=== PATIENT | female | born 1955 | race Caucasian/White ===

== ENCOUNTER 2021-04-12 18:03 | Emergency (ER) | payer MEDICARE ==
[~2021-04-12] VITALS: Ht 167.6 cm; Wt 95.8 kg
--- NOTE | 2021-04-12 19:11 | PHYS DOC ---
General Adult EDM: Chief Complaint: COUGH HPI: HPI: " I ve been sick about a week.. they check my covid tues and it was negative.. I never come to ED.. but I am miserable..." ". I got fever .. chills... coughing all the time... " Patient is a 66 year old female who presents with above hx and complaints of cough, fever, chills, malaise, arthralgia, cephalgia, and myalgia. Pt. has significant medical hx of previous colon cancer with colon resection. And 2017. Patient underwent surgery radiation and chemotherapy at [facility]. Patient states she has completed Covid vaccination. X2. No recent travel. No specific ill contacts. Patient does not smoke. Pt. Patient follows with Verna. Review of Systems: Review of Systems: Constitutional: History of fever or chills Eyes: Denies change in visual acuity HENT: Denies nasal congestion or sore throat Respiratory: History of a nonproductive cough Cardiovascular: Denies chest pain or edema GI: Denies abdominal pain, nausea, vomiting, bloody stools or diarrhea : Denies dysuria Musculoskeletal: Complains of myalgia arthralgia Integument: Denies rash Neurologic: Complains of headache from the constant coughing. Endocrine: Denies polyuria or polydipsia Lymphatic: Denies swollen glands Psychiatric: Denies depression or anxiety Family History: Family History: Noncontributory to presentation. Current Medications: Current Meds: See nursing for home meds Allergies: Allergies: No known drug allergies Physical Exam: PE: Constitutional: Moderate acute distress, non-toxic appearance. [] HENT: Normocephalic, atraumatic, bilateral external ears normal, oropharynx moist, no oral exudates, nose normal. [] Eyes: PERRLA, EOMI, conjunctiva normal, no discharge. [] Neck: Normal range of motion, no tenderness, supple, no stridor. [] Cardiovascular:Heart rate regular rhythm, no murmur [] Lungs & Thorax: Bilateral breath sounds equal apex with rhonchi over right lung barroso posteriorly on auscultation []. The patient has somewhat persistent nonproductive cough Abdomen: Bowel sounds normal, soft, no tenderness, no masses, no pulsatile masses. Old surgery scars. Skin: Warm, diaphoretic, no erythema, no rash. [] Back: No tenderness, no CVA tenderness. [] Extremities: No tenderness, no cyanosis, no clubbing, ROM intact, no edema. No cording appreciated Neurologic: Alert and oriented X 3, moves all extremities on request, has distal sensory,, no focal deficits noted. Ambulatory without problems. Psychologic: Affect anxious, judgement normal, mood normal. [] Current Patient Data: Vital Signs: Vital Signs Date Time Temp Pulse Resp B/P (MAP) Pulse Ox O2 Delivery O2 Flow Rate FiO2 04/12/21 18:03 83 98 Room Air EKG: EKG: My interpretation EKG shows a sinus rhythm at 74 bpm. There is an incomplete bundle branch block. But no findings of acute STEMI of contralateral changes time of this EKG is 1940 hrs. [] Radiology/Procedures: Radiology/Procedures: [address] [address] IMAGING REPORT Signed PATIENT: JIM MCAK ACCOUNT: [id number] : 1955 LOCATION: ER AGE: 66 SEX: F EXAM STATUS: DEP ER ORD. PHYSICIAN: KENA MACK MD REASON: cough, dyspnea, mass, OMNI 350, 100ml PROCEDURE: CT ANGIOGRAPHY CHEST EXAM: CT chest with contrast - pulmonary embolus protocol CLINICAL HISTORY: Reason: cough, dyspnea, mass, OMNI 350, 100ml / Spl. Instructions: / History: . COMPARISON: None. TECHNIQUE: CT of the chest following the administration of intravenous contrast during the pulmonary arterial phase. Axial, coronal and sagittal reformatted images were generated including MIP images. ---PQRS compliance statement - One or more of the following individualized dose reduction techniques were utilized for this study: 1. Automated exposure control 2. Adjustment of the mA and/or kV according to patient size 3. Use of iterative reconstruction technique--- FINDINGS: CHEST: Diagnostic quality: Adequate. Pulmonary emboli: No pulmonary emboli to the level of the segmental branches. More peripheral vessels are not well assessed. Right heart strain: There is global dilation of the heart without evidence of right heart strain. There is a trace pericardial effusion. Pulmonary arteries: Normal in caliber. The visualized thyroid gland is normal. There is fluid throughout the course of the esophagus with small hiatal hernia demonstrated. There is a soft tissue attenuating masslike consolidation within the portion of the right lower lobe measures 5.2 x 6.9 x 5.3 cm in maximal AP by transverse by craniocaudal dimensions. This masslike consolidation abuts the pleura without extrapleural extension. This area of consolidation extends along the major fissure without extension into the right upper lobe. There is increased interstitial markings with scattered glass opacities the central airway. Conglomerate of right hilar adenopathy causes significant decompression of the right main/interlobar bronchus without occlusion. There are also a few prominent subcarinal lymph nodes. Visualized Upper abdomen: No evidence of acute process. There appears to be suture material along the greater gastric curvature. Unopacified ptosis. Bones: Multiple level degenerative changes of the thoracic spine with no evidence of acute process. IMPRESSION: 1. No evidence of pulmonary thromboembolic disease to the level of the segmental pulmonary arteries. 2. Large masslike consolidation within the right lower lobe abutting the right major fissure. This may be a focus of infection versus pulmonary neoplasm. Short interval follow-up with possible biopsy is advised. 3. Conglomerate of right hilar nodes may be reactive versus lymphatic metastasis. Electronically signed by: Elissa Kimbrough DO (04/13/2021 5:58 AM) [facility] DICTATED AND SIGNED BY: ELISSA KIMBROUGH DO DATE: 04/13/21 0539 CC: KENA MACK MD; NICO WARD ~MTH0 [address] [place] [address] IMAGING REPORT Signed PATIENT: JIM MACK ACCOUNT: [id number] : 1955 LOCATION: ER AGE: 66 SEX: F EXAM STATUS: REG ER ORD. PHYSICIAN: KENA MACK MD REASON: HEAD ACHE, WITH LUNG MASS PROCEDURE: CT HEAD WO CONTRAST EXAMINATION: CT head without IV contrast INDICATION:66 years, Female, headache, with lung mass. COMPARISON: None TECHNIQUE: Spiral acquisition of contiguous images from the skull base to the vertex were obtained. Sagittal and coronal 2D reformatted series were provided by the technologist. Soft tissue and bone window algorithms were reviewed. Exposure: One or more of the following individualized dose reduction techniques were utilized for this examination: 1. Automated exposure control 2. Adjustment of the mA and/or kV according to patient size 3. Use of iterative reconstruction technique. FINDINGS: Neither mass, midline shift, intracranial hemorrhage, acute/subacute ischemic changes, nor extraaxial fluid collections are seen. Mild brain parenchymal volume loss. Supratentorial periventricular white matter hypodensities, indeterminate but most likely representing chronic microangiopathic disease. Small left mucosal retention cyst in the left maxillary sinus. Remaining paranasal sinuses and mastoid air cells are clear., mastoid air cells, and middle ears are clear.The orbital contents appear within normal limits. IMPRESSION: 1. No evidence of acute intracranial abnormality. If symptoms persist then further evaluation with nonemergent MRI without and with IV contrast may be considered. 2. Supratentorial periventricular white matter hypodensities, indeterminate but most likely representing chronic microangiopathic disease. Electronically signed by: Elissa Kimbrough DO (04/13/2021 12:03 AM) [facility] DICTATED AND SIGNED BY: ELISSA KIMBROUGH DO DATE: 04/13/21 0000 CC: KENA MACK MD; NICO WARD ~MTH0 0 [][place] [address] IMAGING REPORT Signed PATIENT: JIM MACK ACCOUNT: [id number] : 1955 LOCATION: ER AGE: 66 SEX: F EXAM STATUS: REG ER ORD. PHYSICIAN: KENA MACK MD REASON: cp, dyspnea PROCEDURE: CHEST PA & LATERAL Exam: Chest 2 views INDICATION: Dyspnea TECHNIQUE: Frontal and lateral views of the chest Comparisons: None FINDINGS: The cardiomediastinal silhouette and pulmonary vessels are within normal limits. There is a right lower lobe mass which measures approximately 6.7 cm. No pleural effusion IMPRESSION: Right lower lobe mass measuring approximately 6.7 cm. Electronically signed by: Bret Cedillo MD (04/12/2021 8:58 PM) [facility] DICTATED AND SIGNED BY: BRET CEDILLO MD DATE: 04/12/212056 CC: KENA MACK MD; NICO WARD ~MTH0 0 Heart Score: C/O Chest Pain: N/A HEART Score for Chest Pain: HEART Score for Chest Pain Response (Comments) Value History Slighlty/Non-Suspicious 0 ECG Normal 0 Age > 65 2 Risk Factors 1 or 2 Risk Factors 1 Troponin < Normal Limit 0 Total 3 Risk Factors: Risk Factors: DM, Current or recent (<one month) smoker, HTN, HLP, family history of CAD, obesity. Risk Scores: Score 0 - 3: 2.5% MACE over next 6 weeks - Discharge Home Score 4 - 6: 20.3% MACE over next 6 weeks - Admit for Clinical Observation Score 7 - 10: 72.7% MACE over next 6 weeks - Early Invasive Strategies Course & Med Decision Making: Course & Med Decision Making Pertinent Labs and Imaging studies reviewed. (See chart for details) Discussed presentation, testing and treatment plan with . Will accept pt. in transfer to [facility] for further eval. Impression: 1. Cough 2. Lung Mass Rt. 3. Post structural pneumonia 4. Leukocytosis 13.8 5. Elevated D-dimer 0.98 6. Diabetes glucose 152 7. Has completed Covid vaccination x2 8. History of colon cancer status post resection chemo and radiation 2016 [] Dragon Disclaimer: Dragon Disclaimer: This electronic medical record was generated, in whole or in part, using a voice recognition dictation system. Departure Departure: Referrals: NICO WARD (PCP) Dragon Disclaimer This chart was dictated in whole or in part using Voice Recognition software in a busy, high-work load, and often noisy Emergency Department environment. It may contain unintended and wholly unrecognized errors or omissions. Dragon Disclaimer This chart was dictated in whole or in part using Voice Recognition software in a busy, high-work load, and often noisy Emergency Department environment. It may contain unintended and wholly unrecognized errors or omissions. Dragon Disclaimer This chart was dictated in whole or in part using Voice Recognition software in a busy, high-work load, and often noisy Emergency Department environment. It may contain unintended and wholly unrecognized errors or omissions. KENA MACK MD Apr 12, 2021 19:10
[2021-04-12] MEDS: ALBUTEROL SULFATE 8GM INHALER. INH ONE ×2 (19:30→19:43)
[2021-04-12] MEDS: IV RINGERS SOLUTION,LACTATED 1,000 ML IV SCH (19:30)
[2021-04-12] MEDS: methylPREDNISolone SOD SUCC PF 125 MG/2 ML VIAL. IV ONE (19:30)
[2021-04-12] MEDS: AZITHROMYCIN 250 MG TABLET. PO ONE (19:30)
[2021-04-12 20:22] LABS: INFLUENZA A PATIENT NEGATIVE (NEGATIVE); INFLUENZA B PATIENT NEGATIVE (NEGATIVE)
[2021-04-12 20:39] LABS: BASO % 0 % (0-3); EOS % 0 % (0-3); HEMATOCRIT 38.2 % (36.0-47.0); HEMOGLOBIN 12.7 g/dL (12.0-15.5); LYMPH # 1.1 x10^3/uL (1.0-4.8); LYMPH % 8 % (24-48); MEAN CORPUSCULAR HEMOGLOBIN 31 pg (25-35); MEAN CORPUSCULAR HGB CONC 33 g/dL (31-37); MEAN CORPUSCULAR VOLUME 93 fL (79-100); MONO # 0.9 x10^3/uL (0.0-1.1); MONO % 7 % (0-9); NEUT # 11.7 x10^3uL (1.8-7.7); NEUT % 85 % (31-73); PLATELET COUNT 341 x10^3/uL (140-400); RED BLOOD COUNT 4.12 x10^6/uL (3.50-5.40); RED CELL DISTRIBUTION WIDTH 13.2 % (11.5-14.5); WHITE BLOOD COUNT 13.8 x10^3/uL (4.0-11.0)
[2021-04-12 20:55] LABS: CALCIUM 8.9 mg/dL (8.5-10.1); CREATININE 0.8 mg/dL (0.6-1.0); GFR 71.3; POTASSIUM 3.6 mmol/L (3.5-5.1)
--- NOTE | 2021-04-12 21:00 | RAD ---
Exam: Chest 2 views INDICATION: Dyspnea TECHNIQUE: Frontal and lateral views of the chest Comparisons: None FINDINGS: The cardiomediastinal silhouette and pulmonary vessels are within normal limits. There is a right lower lobe mass which measures approximately 6.7 cm. No pleural effusion IMPRESSION: Right lower lobe mass measuring approximately 6.7 cm. Electronically signed by: Bret Alvarado MD (04/12/2021 8:58 PM) [facility]
[2021-04-12 21:07] LABS: ALBUMIN 2.9 g/dL (3.4-5.0); DIRECT BILIRUBIN 0.1 mg/dL (0.0-0.2); MAGNESIUM 1.9 mg/dL (1.8-2.4); TOTAL BILIRUBIN 0.5 mg/dL (0.2-1.0); TOTAL PROTEIN 7.7 g/dL (6.4-8.2)
[2021-04-12] MEDS ORDERED: oxyCODONE/APAP 5/325 1 TAB TABLET ONE (21:21)
--- NOTE | 2021-04-12 21:51 | EKG ---
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
[2021-04-12] MEDS: oxyCODONE/APAP 5/325 1 TAB TABLET PO ONE (22:00)
[2021-04-12] MEDS ORDERED: ONDANSETRON PF 4 MG/2 ML VIAL. ONE (22:36)
[2021-04-12] MEDS ORDERED: CONTRAST GIVEN. MC PRN (22:45)
[2021-04-12] MEDS: ONDANSETRON PF 4 MG/2 ML VIAL. IVP ONE (23:00)
[2021-04-12] MEDS: IOHEXOL 350 MG/ML 100 ML VIAL. IV ONE (23:20)
[2021-04-12] MEDS ORDERED: ONDANSETRON PF 4 MG/2 ML VIAL. IVP ONE (23:30)
--- NOTE | 2021-04-13 00:05 | RAD ---
EXAMINATION: CT head without IV contrast INDICATION:66 years, Female, headache, with lung mass. COMPARISON: None TECHNIQUE: Spiral acquisition of contiguous images from the skull base to the vertex were obtained. S agittal and coronal 2D reformatted series were provided by the technologist. Soft tissue and bone win abdifatah algorithms were reviewed. Exposure: One or more of the following individualized dose reduction techniques were utilized for thi s examination: 1. Automated exposure control 2. Adjustment of the mA and/or kV according to patient size 3. Use of iterative reconstruction technique. FINDINGS: Neither mass, midline shift, intracranial hemorrhage, acute/subacute ischemic changes, nor extraaxial fluid collections are seen. Mild brain parenchymal volume loss. Supratentorial periventricular white matter hypodensities, indeterminate but most likely representing chronic microangiopathic disease. Small left mucosal retention cyst in the left maxillary sinus. Remaining paranasal sinuses and mastoi d air cells are clear., mastoid air cells, and middle ears are clear.The orbital contents appear with in normal limits. IMPRESSION: 1. No evidence of acute intracranial abnormality. If symptoms persist then further evaluation with n onemergent MRI without and with IV contrast may be considered. 2. Supratentorial periventricular white matter hypodensities, indeterminate but most likely represen ting chronic microangiopathic disease. Electronically signed by: Caleb Kimbrough DO (04/13/2021 12:03 AM) [facility]
[2021-04-13 00:08] LABS: BILIRUBIN,URINE NEG (NEG); CLARITY,URINE CLEAR; COLOR,URINE YELLOW; GLUCOSE,URINE NEG (NEG)
[2021-04-13 00:09] LABS: BACTERIA,URINE 0 /HPF (0-FEW); NITRITE,URINE NEG (NEG); RBC,URINE 0 /HPF (0-2); SQUAMOUS EPITHELIAL CELL,UR OCC /LPF; UROBILINOGEN,URINE 0.2 mg/dL (0.2 mg/dL); WBC,URINE OCC /HPF (0-4)
[2021-04-13] MEDS: ENOXAPARIN ** NOTE DOSE ** SYRINGE SQ ONE (02:30)
[2021-04-13 02:52] VITALS: BP 130/68
[2021-04-13] MEDS ORDERED: LIDOCAINE 1% Multi-Dose 20 ML VIAL. ONE (03:11)
[2021-04-13] MEDS: IPRATRPIUM/ALBUTEROL 0.5/2.5MG 3 ML NEBU. NEB ONE (03:28)
--- NOTE | 2021-04-13 06:00 | RAD ---
EXAM: CT chest with contrast - pulmonary embolus protocol CLINICAL HISTORY: Reason: cough, dyspnea, mass, OMNI 350, 100ml / Spl. Instructions: / History: . COMPARISON: None. TECHNIQUE: CT of the chest following the administration of intravenous contrast during the pulmonary arterial phase. Axial, coronal and sagittal reformatted images were generated including MIP images. ---PQRS compliance statement - One or more of the following individualized dose reduction techniques were utilized for this study: 1. Automated exposure control 2. Adjustment of the mA and/or kV according to patient size 3. Use of iterative reconstruction technique--- FINDINGS: CHEST: Diagnostic quality: Adequate. Pulmonary emboli: No pulmonary emboli to the level of the segmental branches. More peripheral vessel s are not well assessed. Right heart strain: There is global dilation of the heart without evidence of right heart strain. The re is a trace pericardial effusion. Pulmonary arteries: Normal in caliber. The visualized thyroid gland is normal. There is fluid throughout the course of the esophagus with sm all hiatal hernia demonstrated. There is a soft tissue attenuating masslike consolidation within the portion of the right lower lobe measures 5.2 x 6.9 x 5.3 cm in maximal AP by transverse by craniocaud al dimensions. This masslike consolidation abuts the pleura without extrapleural extension. This area of consolidation extends along the major fissure without extension into the right upper lobe. There is increased interstitial markings with scattered glass opacities the central airway. Conglomerate of right hilar adenopathy causes significant decompression of the right main/interlobar bronchus withou t occlusion. There are also a few prominent subcarinal lymph nodes. Visualized Upper abdomen: No evidence of acute process. There appears to be suture material along th e greater gastric curvature. Unopacified ptosis. Bones: Multiple level degenerative changes of the thoracic spine with no evidence of acute process. IMPRESSION: 1. No evidence of pulmonary thromboembolic disease to the level of the segmental pulmonary arteries. 2. Large masslike consolidation within the right lower lobe abutting the right major fissure. This ma y be a focus of infection versus pulmonary neoplasm. Short interval follow-up with possible biopsy is advised. 3. Conglomerate of right hilar nodes may be reactive versus lymphatic metastasis. Electronically signed by: Caleb Kimbrough DO (04/13/2021 5:58 AM) [facility]
--- NOTE | 2021-04-14 11:59 | NUR ---
IP: Attempted to contact pt concerning covid results. No answer, left a voicemail to return the call.
== END 2021-04-13 04:07 | disposition short-term general hospital (02) ==
LOC: ER 18:03
DX: J18.9 Pneumonia, unspecified organism (principal); R91.8 Other nonspecific abnormal finding of lung field; D72.829 Elevated white blood cell count, unspecified; R79.1 Abnormal coagulation profile; E11.9 Type 2 diabetes mellitus without complications; Z20.822 Contact with and (suspected) exposure to COVID-19; Z85.038 Personal history of other malignant neoplasm of large intestine
CPT/HCPCS: 36415; 70450; 71046; 71275; 80048; 80076; 81001; 82550; 83735; 83880; 84443; 84484; 85025; 85379; 85610; 85730; 87040; 87070; 87426; 87804; 87880; 93005; 94640; 96361; 96372; 96374; 96375; 99285; C9803; J1650; J2405; J2930; J7120; Q9967; U0003; 94664

== ENCOUNTER → 2021-05-26 | Outpatient (CLI) | payer MEDICARE ==
[~2021-05-26] MED LIST: IOHEXOL 300 MG/ML 75 ML VIAL. IV ONE
--- NOTE | 2021-05-26 11:57 | RAD ---
CT of the chest with contrast 05/26/2021 INDICATION: Follow-up pneumonia. COMPARISON STUDY: CT angiography of the chest April 12, 2021. TECHNIQUE: Multidetector CT imaging of the chest was performed following the administration of contra st FINDINGS: Heart size is normal. No pericardial effusion is identified. With respect to comparison ting dy right hilar adenopathy is significantly improved. No new or enlarging adenopathy is identified. Th ere is no pneumothorax or pleural effusion. There is markedly interval improvement in the previously seen dense right lower lobe consolidation. Mild residual atelectasis/consolidation persists. The appe arance is consistent with resolving pneumonia. Small hiatal hernia noted. Postoperative changes follo wing sleeve gastrectomy noted. Limited of the upper abdomen demonstrates no acute abnormality. No acu te osseous abnormality is identified. IMPRESSION: 1. Interval improvement in right lower lobe pneumonia with only minimal residual consolidation and at electasis. Decreasing right hilar adenopathy also noted. 2. No other acute cardiopulmonary process CT DOSING PQRS STATEMENT: One or more of the following individualized dose reduction techniques were utilized for this examinat ion: 1. Automated exposure control 2. Adjustment of the mA and/or kV according to patient size 3. Use of iterative reconstruction technique Electronically signed by: Delvin Leiva MD (05/26/2021 11:54 AM) [id number]
== END ==
LOC: CT 13:21
PROVIDERS: ATTEND Internal Medicine
DX: J18.9 Pneumonia, unspecified organism (principal); K44.9 Diaphragmatic hernia without obstruction or gangrene; Z90.3 Acquired absence of stomach [part of]
CPT/HCPCS: 71260; Q9967

== ENCOUNTER 2021-10-20 08:21 | Emergency (ER) | payer MEDICARE ==
[~2021-10-20] VITALS: Ht 167.6 cm; Wt 99.4 kg
[2021-10-20] MEDS ORDERED: IV NORMAL SALINE 1,000ML 1,000 ML IV SCH (08:30)
--- NOTE | 2021-10-20 08:42 | EKG ---
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
[2021-10-20] MEDS ORDERED: ASPIRIN CHEWABLE 81 MG TABLET. PO ONE (08:45)
--- NOTE | 2021-10-20 08:53 | PHYS DOC ---
Past History Past Surgical History: No Surgical History, Cancer Surgery Alcohol Use: None General Adult EDM: Chief Complaint: CHEST PAIN HPI: HPI: 66-year-old female presents with chest pain. She states the pain started on Tuesday seemingly out of nowhere. The pain is a squeezing sensation in her central chest. The episodes come and go. They last for several minutes at a time. Nothing seems to make it better or worse. She denies shortness of breath or diaphoresis. At this time her pain is 8 out of 10 and radiating to her right arm. She states this feels different than chest pain she had with pneumonia several months ago. She has never had a cardiac cath or stress test. She has hypertension and takes her medication daily. She did take it this morning. She denies any medication or supplement changes. Denies fever or chills. Review of Systems: Review of Systems: Constitutional: Denies fever or chills Eyes: Denies change in visual acuity HENT: Denies nasal congestion or sore throat Respiratory: Denies cough or shortness of breath Cardiovascular: Chest pain GI: Denies abdominal pain, nausea, vomiting, bloody stools or diarrhea : Denies dysuria Musculoskeletal: Denies back pain or joint pain Integument: Denies rash Neurologic: Denies headache, focal weakness or sensory changes Endocrine: Denies polyuria or polydipsia Lymphatic: Denies swollen glands Psychiatric: Denies depression or anxiety Current Medications: Current Meds: Current Medications Medications (Trade) Dose Ordered Sig/Manoj Start Time Stop Time Status Last Admin Dose Admin Aspirin (Aspirin Chewable) 324 mg 1X ONCE 10/20/21 08:45 10/20/21 08:46 DC Sodium Chloride 1,000 ml @ 1,000 mls/hr Q1H 10/20/21 08:30 10/20/21 09:29 Allergies: Allergies: Allergies Coded Allergies Type Severity Reaction Last Updated Verified No Known Drug Allergies 04/12/21 No Physical Exam: PE: Constitutional: Well developed, well nourished, morbidly obese, no acute distress, non-toxic appearance. [] HENT: Normocephalic, atraumatic, bilateral external ears normal, oropharynx moist, no oral exudates, nose normal. [] Eyes: PERRLA, EOMI, conjunctiva normal, no discharge. [] Neck: Normal range of motion, no tenderness, supple, no stridor. [] Cardiovascular: Heart rate 63, regular rhythm, no murmur [] Lungs & Thorax: Bilateral breath sounds clear to auscultation [] Abdomen: Bowel sounds normal, soft, no tenderness, no masses, no pulsatile masses. [] Skin: Warm, dry, no erythema, no rash. [] Back: No tenderness, no CVA tenderness. [] Extremities: No tenderness, no cyanosis, no clubbing, ROM intact, no edema. [] Neurologic: Alert and oriented X 3, normal motor function, normal sensory function, no focal deficits noted. [] Psychologic: Affect normal, judgement normal, mood normal. [] EKG: EKG: Sinus rhythm, rate 63, leftward axis, no ST elevation or depression. [] Radiology/Procedures: Radiology/Procedures: [] Impressions: XR CHEST 1V History: Reason: CHEST PAIN / Spl. Instructions: / History: Comparison: April 12, 2021 Findings: No consolidation or pleural effusion. Normal heart size. No pneumothorax. Impression: 1. No acute cardiopulmonary process. Electronically signed by: Darci Moy DO (10/20/2021 9:52 AM) [id number] DICTATED AND SIGNED BY: DARCI MOY DO DATE: 10/20/21 0951 CC: TORIBIO PATEL DO; NICO WARD ~ Heart Score: C/O Chest Pain: Yes HEART Score for Chest Pain: HEART Score for Chest Pain Response (Comments) Value History Slighlty/Non-Suspicious 0 ECG Normal 0 Age > 65 2 Risk Factors 1 or 2 Risk Factors 1 Troponin < Normal Limit 0 Total 3 Risk Factors: Risk Factors: DM, Current or recent (<one month) smoker, HTN, HLP, family history of CAD, obesity. Risk Scores: Score 0 - 3: 2.5% MACE over next 6 weeks - Discharge Home Score 4 - 6: 20.3% MACE over next 6 weeks - Admit for Clinical Observation Score 7 - 10: 72.7% MACE over next 6 weeks - Early Invasive Strategies Course & Med Decision Making: Course & Med Decision Making Pertinent Labs and Imaging studies reviewed. (See chart for details) The patient was given 324 of aspirin on arrival. EKG is unremarkable. Troponin is negative. Chest x-ray is negative for acute findings. Patient's other labs are unremarkable. This does not appear to be cardiopulmonary in nature. Heart score is a 3. She is stable for discharge at this time. [] Dragon Disclaimer: Dragon Disclaimer: This electronic medical record was generated, in whole or in part, using a voice recognition dictation system. Departure Departure: Impression: Primary Impression: Chest pain Qualified Codes: R07.9 - Chest pain, unspecified Disposition: HOME / SELF CARE / HOMELESS Condition: STABLE Referrals: NICO WARD (PCP) Patient Instructions: Chest Pain (Nonspecific), [id number] TORIBIO PATEL DO Oct 20, 2021 08:52
[2021-10-20 09:37] LABS: CALCIUM 8.9 mg/dL (8.5-10.1); CREATININE 0.7 mg/dL (0.6-1.0); GFR 83.2; POTASSIUM 4.2 mmol/L (3.5-5.1)
[2021-10-20 09:49] LABS: ALBUMIN 3.4 g/dL (3.4-5.0); ALBUMIN/GLOBULIN RATIO 1.1 (1.0-1.7); TOTAL BILIRUBIN 0.5 mg/dL (0.2-1.0); TOTAL PROTEIN 6.5 g/dL (6.4-8.2)
--- NOTE | 2021-10-20 09:54 | RAD ---
XR CHEST 1V History: Reason: CHEST PAIN / Spl. Instructions: / History: Comparison: April 12, 2021 Findings: No consolidation or pleural effusion. Normal heart size. No pneumothorax. Impression: 1. No acute cardiopulmonary process. Electronically signed by: Darci Dumas DO (10/20/2021 9:52 AM) [id number]
[2021-10-20 10:27] LABS: BASO % 1 % (0-3); EOS # 0.1 x10^3/uL (0.0-0.7); EOS % 2 % (0-3); HEMATOCRIT 46.7 % (36.0-47.0); HEMOGLOBIN 15.4 g/dL (12.0-15.5); LYMPH # 1.5 x10^3/uL (1.0-4.8); LYMPH % 35 % (24-48); MEAN CORPUSCULAR HEMOGLOBIN 31 pg (25-35); MEAN CORPUSCULAR HGB CONC 33 g/dL (31-37); MEAN CORPUSCULAR VOLUME 94 fL (79-100); MONO # 0.4 x10^3/uL (0.0-1.1); MONO % 8 % (0-9); NEUT # 2.4 x10^3uL (1.8-7.7); NEUT % 54 % (31-73); PLATELET COUNT 168 x10^3/uL (140-400); RED BLOOD COUNT 4.97 x10^6/uL (3.50-5.40); RED CELL DISTRIBUTION WIDTH 14.4 % (11.5-14.5); WHITE BLOOD COUNT 4.4 x10^3/uL (4.0-11.0)
[2021-10-20 10:45] VITALS: BP 178/78
== END 2021-10-20 10:55 | disposition home or self-care (01) ==
LOC: ER 08:21
DX: R07.89 Other chest pain (principal); I10 Essential (primary) hypertension
CPT/HCPCS: 36415; 71045; 80053; 83880; 84484; 85025; 93005; 96360; 96361; 99285; J7030